=== PATIENT | male | born 1970 | race Two or more races ===

== ENCOUNTER 2024-09-26 08:36 | Day surgery (SDC) | payer OTHER ==
[~2024-09-26 08:36] MED LIST: Sodium Chloride 0.9% 10 ML Syringe FLUSH PRN; Sodium Chloride 0.9% 10 ML Syringe FLUSH SCH
[2024-09-26] MEDS: Lactated Ringers 1,000 ML IV SCH (09:00)
[2024-09-26] MEDS ORDERED: Midazolam 1 MG/ML 2 ML SDV ONE (09:10)
[2024-09-26] MEDS ORDERED: Ketorolac 30 MG/ML SDV ONE (09:10)
[2024-09-26] MEDS ORDERED: Dexamethasone 4 MG/ML 5 ML MDV ONE (09:10)
[2024-09-26] MEDS ORDERED: ceFAZolin 2 GM Vial ONE (09:10)
[2024-09-26] MEDS ORDERED: Ondansetron 4 MG/2 ML SDV ONE (09:10)
[2024-09-26] MEDS ORDERED: Propofol 200 MG/20 ML SDV ONE ×2 (09:10→11:46)
[2024-09-26] MEDS ORDERED: Rocuronium 50 MG/5 ML Vial ONE ×2 (09:10→11:17)
[2024-09-26] MEDS ORDERED: dexmedeTOMIDine HCl 200 MCG/2 ML SDV ONE (09:10)
[2024-09-26] MEDS ORDERED: Lactated Ringers 1,000 ML ONE (09:10)
[2024-09-26] MEDS ORDERED: fentaNYL 250 MCG/5 ML SDV ONE (09:10)
[2024-09-26] MEDS ORDERED: Lidocaine 1% 4 ML ONE (09:11)
[2024-09-26] MEDS ORDERED: HYDROmorphone 0.5 MG/0.5 ML Syringe IVPUSH PRN (09:14)
[2024-09-26] MEDS ORDERED: fentaNYL 100 MCG/2 ML SDV IVPUSH PRN (09:14)
[2024-09-26] MEDS ORDERED: Ondansetron 4 MG/2 ML SDV IVPUSH PRN (09:14)
[2024-09-26] MEDS ORDERED: ePHEDrine 50 MG/ML SDV ONE (10:46)
[2024-09-26] MEDS: Lidocaine 1% 30 ML SDV ONE (10:52)
[2024-09-26] MEDS: Bupivacaine 0.5% 30 ML SDV ONE (10:52)
[2024-09-26] MEDS: EPINEPHrine 1 MG/ML SDV ONE (10:52)
[2024-09-26] MEDS ORDERED: Glycopyrrolate 0.2 MG/ML 2 ML SDV ONE (10:54)
[2024-09-26] MEDS ORDERED: Sugammadex Sodium 200 MG/2 ML VIAL IV ONE (11:21)
[2024-09-26] MEDS: Acetaminophen/oxyCODONE 325-5 MG Tab PO PRN (14:17)
== END 2024-09-26 14:50 | disposition home or self-care (01) ==
LOC: JD.SDS 08:36
PROVIDERS: ATTEND Surgery
DX: K80.10 Calculus of gallbladder with chronic cholecystitis without obstruction (principal); K21.00 Gastro-esophageal reflux disease with esophagitis, without bleeding; K44.9 Diaphragmatic hernia without obstruction or gangrene; Z80.0 Family history of malignant neoplasm of digestive organs
CPT/HCPCS: 43239; 47562; A9270; J0171; J0665; J0690; J1100; J1885; J2003; J2250; J2405; J2704; J3010; J7120; 00790; J1596; J3490